=== PATIENT | male | born 1980 | race Two or more races ===

== ENCOUNTER 2023-06-20 13:11 | Emergency (ER) | payer MEDICAID, OTHER ==
[~2023-06-20] VITALS: Ht 154.9 cm; Wt 79.4 kg
[2023-06-20 16:14] VITALS: BP 108/73; PULSE 73; RESP 18; TEMP 97.8; O2SAT 97
[2023-06-20] MEDS ORDERED: IBUP1TAB5 PO (16:35)
[2023-06-20] MEDS ORDERED: CYCL-839 PO (16:35)
[2023-06-20] MEDS ORDERED: IBUPROFEN 600 MG TAB PO ONE (16:45)
== END 2023-06-20 16:45 | disposition home or self-care (01) ==
LOC: ER 13:11
DX: S16.1XXA Strain of muscle, fascia and tendon at neck level, initial encounter (principal); S46.912A Strain of unspecified muscle, fascia and tendon at shoulder and upper arm level, left arm, initial encounter; V43.52XA Car driver injured in collision with other type car in traffic accident, initial encounter; Y93.89 Activity, other specified; Y92.488 Other paved roadways as the place of occurrence of the external cause; Y99.8 Other external cause status
CPT/HCPCS: 72040; 73030